=== PATIENT | female | born 1955 | race Caucasian/White ===

== ENCOUNTER → 2022-03-12 | Outpatient (CLI) | payer OTHER ==
[~2022-03-12] MED LIST: AMIT10 PO; Augmentin 875-1 EACH PO; CLIMARA TOP; ESTRADIOL1 EACH TD; MINIVELLE1 EAC1 TD; VALA500 PO; [UNRECOGNIZED DRUG - OTHER] PO
[2022-03-12 13:54] LABS: Stool Occult Bld Immuno 1 Negative (NEGATIVE)
== END ==
LOC: LAB SHORT 09:00 → LAB 09:00
PROVIDERS: Nurse Practitioner Family
DX: Z12.11 Encounter for screening for malignant neoplasm of colon (principal)
CPT/HCPCS: G0328

== ENCOUNTER → 2022-06-30 | Outpatient (CLI) | payer OTHER ==
[2022-07-01 10:27] LABS: Candida species (DNA Probe) Positive (NEGATIVE); G. vaginalis (DNA Probe) Negative (NEGATIVE); T. vaginalis (DNA Probe) Negative (NEGATIVE)
== END ==
LOC: LAB SHORT 12:00
PROVIDERS: Nurse Practitioner Family
DX: N76.5 Ulceration of vagina (principal)
CPT/HCPCS: 87070; 87205; 87480; 87510; 87660

== ENCOUNTER → 2023-06-29 | Outpatient (CLI) | payer OTHER ==
[2023-06-29 15:40] LABS: Stool Occult Bld Immuno 1 Negative (NEGATIVE)
== END ==
LOC: LAB SHORT 11:12 → LAB 11:12
PROVIDERS: Nurse Practitioner Family
DX: Z12.11 Encounter for screening for malignant neoplasm of colon (principal)
CPT/HCPCS: 82274